=== PATIENT | male | born 1975 | race Two or more races ===

== ENCOUNTER 2022-02-13 12:07 | Emergency (ER) | payer OTHER ==
[~2022-02-13] VITALS: Ht 188 cm; Wt 127.9 kg
[2022-02-13 12:58] LABS: Basophils # (auto) 0.2 10 ^3/uL (0-0.2); Basophils % (auto) 2.3 % (0.0-2.0); Eosinophils # (auto) 0.1 10 ^3/uL (0-0.8); Eosinophils % (auto) 1.3 % (0.0-7.0); Hematocrit 45.6 % (41.0-53.0); Hemoglobin 15.6 g/dL (13.5-17.5); Lymphocytes # (auto) 1.2 10 ^3/uL (0.4-5.4); Lymphocytes % (auto) 11.6 % (10.0-50.0); Mean Corpuscular Hemoglobin 31.1 pg (28.0-32.0); Mean Corpuscular Hgb Conc. 34.3 g/dL (32.0-36.0); Mean Corpuscular Volume 90.7 fL (80.0-100.0); Monocytes # (auto) 0.5 10 ^3/uL (0-1.3); Monocytes % (auto) 5.3 % (0.0-12.0); Neutrophils % (auto) 79.5 % (37.0-80.0); Nucleated Red Blood Cells % 0.1 %; Red Blood Cells 5.03 10^6/uL (4.5-5.90); Red Cell Distribution Width 14.2 % (11.8-14.3)
[2022-02-13 13:17] LABS: Albumin 3.7 g/dL (3.4-5.0); BUN/Creatinine Ratio 7.8
[2022-02-13 13:20] LABS: Bilirubin, Total 0.4 mg/dL (0.2-1.0); Total Protein 7.1 g/dL (6.4-8.2)
[2022-02-13 15:03] VITALS: BP 130/85
== END 2022-02-13 15:17 | disposition home or self-care (01) ==
LOC: ER 12:07
DX: R51.9 Headache, unspecified (principal)
CPT/HCPCS: 36415; 70486; 80053; 85025